=== PATIENT | female | born 1990 | race Caucasian/White ===

== ENCOUNTER 2020-09-07 11:05 | Emergency (ER) | payer OTHER ==
[~2020-09-07] VITALS: Ht 149.9 cm; Wt 66.8 kg
[2020-09-07] MEDS ORDERED: MORPHINE SULFATE 4 MG/ML VIAL. IV/SQ PRN (11:30)
[2020-09-07] MEDS ORDERED: ONDANSETRON PF 4 MG/2 ML VIAL. IVP ONE (11:30)
[2020-09-07] MEDS ORDERED: IV NORMAL SALINE 1000ML BAG 1,000 ML IV ONE (11:30)
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
[2020-09-07] MEDS ORDERED: IOHEXOL 300 MG/ML 100ML VIAL. IV ONE (11:45)
[2020-09-07] MEDS ORDERED: CONTRAST GIVEN. MC PRN (12:00)
[2020-09-07 12:14] LABS: BARBITURATES NEG (NEG); BENZODIAZEPINES NEG (NEG); BILIRUBIN,URINE NEGATIVE (NEG); CANNABINOIDS POS (NEG); CLARITY,URINE CLEAR; COCAINE NEG (NEG); COLOR,URINE YELLOW; METHADONE NEG (NEG); NITRITE,URINE NEGATIVE (NEG); OPIATES NEG (NEG); PH,URINE 5.5 (<5.0-8.0); PHENCYCLIDINE NEG (NEG); PROTEIN,URINE 100 mg/dL (NEG-TRACE); UROBILINOGEN,URINE 0.2 mg/dL (0.2 mg/dL)
[2020-09-07 12:17] LABS: AMPHETAMINE/METHAMPHETAMINE NEG (NEG)
[2020-09-07 12:18] LABS: BACTERIA,URINE MOD /HPF (0-FEW)
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
[2020-09-07 12:42] LABS: BASO # 0.1 x10^3/uL (0.0-0.2); BASO % 1 % (0-3); EOS # 0.1 x10^3/uL (0.0-0.7); EOS % 1 % (0-3); HEMOGLOBIN 15.1 g/dL (12.0-15.5); LYMPH # 1.1 x10^3/uL (1.0-4.8); LYMPH % 6 % (24-48); MEAN CORPUSCULAR HEMOGLOBIN 28 pg (25-35); MEAN CORPUSCULAR HGB CONC 33 g/dL (31-37); MEAN CORPUSCULAR VOLUME 85 fL (79-100); MONO # 1.4 x10^3/uL (0.0-1.1); MONO % 7 % (0-9); NEUT # 16.6 x10^3/uL (1.8-7.7); NEUT % 86 % (31-73); PLATELET COUNT 310 x10^3/uL (140-400); RED BLOOD COUNT 5.42 x10^6/uL (3.50-5.40); RED CELL DISTRIBUTION WIDTH 15.2 % (11.5-14.5); WHITE BLOOD COUNT 19.3 x10^3/uL (4.0-11.0)
[2020-09-07 12:51] LABS: PROTHROMBIN TIME PATIENT 13.3 SEC (11.7-14.0)
[2020-09-07 12:52] LABS: CREATININE 0.7 mg/dL (0.6-1.0); GFR 97.6; POTASSIUM 3.9 mmol/L (3.5-5.1)
[2020-09-07 12:58] LABS: ALBUMIN 3.4 g/dL (3.4-5.0); ALBUMIN/GLOBULIN RATIO 0.9 (1.0-1.7); TOTAL BILIRUBIN 0.5 mg/dL (0.2-1.0)
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
[2020-09-07 14:05] LABS: % BANDS 2 % (0-9); % EOS 1 % (0-5); % LYMPHS 8 % (24-48); % MONOS 8 % (0-10); % SEGS 81 % (35-66)
[2020-09-07 14:09] LABS: PLT ESTIMATE ADEQUATE (ADEQUATE); POIKILOCYTOSIS SLIGHT
[2020-09-07] MEDS ORDERED: NAPR-514 PO (14:51)
[2020-09-07] MEDS ORDERED: CYCL10TA2 PO (14:51)
[2020-09-07] MEDS ORDERED: DIPH,PERTUSS(ACELL),TET VAC/PF 0.5 ML SYRINGE. VAX IM ONE (15:00)
[2020-09-07 16:15] VITALS: BP 133/75
[2020-09-07] MEDS ORDERED: NITR100C62 PO (22:11)
--- NOTE | 2020-09-08 04:50 | EKG ---
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
== END 2020-09-07 16:36 | disposition home or self-care (01) ==
LOC: ER 11:05
DX: S93.491A Sprain of other ligament of right ankle, initial encounter (principal); S80.01XA Contusion of right knee, initial encounter; M25.562 Pain in left knee; V98.8XXA Other specified transport accidents, initial encounter; Y93.89 Activity, other specified; Y92.413 State road as the place of occurrence of the external cause; Y99.8 Other external cause status
CPT/HCPCS: 36415; 70450; 71045; 71260; 72125; 73562; 73610; 74177; 80053; 80307; 81001; 81025; 83605; 84484; 85007; 85025; 85610; 85730; 86850; 86900; 86901; 93005; 96361; 96374; 96375; 99285; G0480; J2270; J2405; J7030; L4350; Q9967

== ENCOUNTER 2020-09-07 21:37 | Emergency (ER) | payer OTHER ==
[~2020-09-07] VITALS: Ht 149.9 cm; Wt 66.8 kg
[~2020-09-07 21:37] MED LIST: CYCL10TA2 PO; NAPR-514 PO
[2020-09-07 21:55] VITALS: BP 161/92
[2020-09-07] MEDS ORDERED: NITR100C62 PO (22:11)
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
[2020-09-07] MEDS ORDERED: IBUPROFEN 200 MG TABLET. PO ONE (22:15)
== END 2020-09-07 22:29 | disposition home or self-care (01) ==
LOC: ER 21:37
DX: S00.83XA Contusion of other part of head, initial encounter (principal); Z76.5 Malingerer [conscious simulation]; F17.200 Nicotine dependence, unspecified, uncomplicated; Z98.890 Other specified postprocedural states; Z90.89 Acquired absence of other organs; Z88.0 Allergy status to penicillin; V98.8XXA Other specified transport accidents, initial encounter; Y93.89 Activity, other specified; Y92.413 State road as the place of occurrence of the external cause; Y99.8 Other external cause status
CPT/HCPCS: 99284